=== PATIENT | male | born 1975 | race Caucasian/White ===

== ENCOUNTER 2024-06-15 16:53 | Emergency (ER) | payer SELFPAY ==
[~2024-06-15] VITALS: Ht 165.1 cm; Wt 86.0 kg
[2024-06-15 17:29] VITALS: BP 156/105; PULSE 88; RESP 17; TEMP 98; O2SAT 99
== END 2024-06-15 23:12 | disposition left against medical advice (07) ==
LOC: ER 16:53
DX: R07.89 Other chest pain (principal); Z53.21 Procedure and treatment not carried out due to patient leaving prior to being seen by health care provider
CPT/HCPCS: 93005